=== PATIENT | female | born 2005 | race Caucasian/White ===

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

== ENCOUNTER 2025-01-17 21:23 | Emergency (ER) | payer OTHER, SELFPAY ==
[2025-01-17 21:24] VITALS: BP 138/78; PULSE 86; RESP 18; TEMP 36.7; O2SAT 100; BMI 29.2
--- NOTE | 2025-01-17 21:34 | ED_ITS ---
Discharge Plan Disposition Patient Disposition: Home, Self-Care Condition: Good Prescriptions Prescriptions: No Action No Known Home Medications Referrals Follow up/Referrals: Provider,Referral, MD [Primary Care Provider, Medical] - See instructions Activity Restrictions/Add. Instructions Additional Instructions/Restrictions: You can take Tylenol and ibuprofen as needed. Return to the emergency department for any acute or worsening symptoms. Clinical Impressions Clinical Impression: Acute left ankle pain Print Language Print Language: Malay Discharge ED Provider: Mariam Duffy General Adult HPI General Chief complaint: Fall Stated complaint: twisted L ankle Time Seen by Provider: 01/17/25 21:28 Mode of Arrival: Ambulatory Source of Information: Patient and Parent(s) Description of Symptoms (Recalled from ER Triage Doc. by RN): noel presents to the ED from a fall for 8 sets of stairs. patient was on the stairs decorating for halloween when her ankle rolled, causing the fall. she has a noticeable abrasion to the left knee, but her main complaint is her left ankle. she stated she also has hardware in the ankle. History of Present Illness HPI narrative: Patient is a 19-year-old female with no significant past medical history except for previous hardware in the left foot who presents to the emergency department with left ankle pain after a fall. Patient states that she was wearing shoes when she rolled her ankle causing the left foot to go behind her. Patient s tates that she not hit her head did not lose consciousness. Patient was able to walk afterwards. Patient has no motor or sensory deficits. Patient does not take any blood thinners. Patient does not take any daily medications. Related Data Home Medications ?Medication ?Instructions ?Recorded ?Confirmed No Known Home Medications 08/09/2407/19 Allergies Allergy/AdvReac Type Severity Reaction Status Date / Time No Known Allergies Allergy Verified 08/09/24 10:37 [facility] Disclaimer: The information contained in this section may have been updated after the patient was seen, as this information can be updated by other users. 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: Student current occupational exposures/hazards: No Have you lived/traveled outside US in past 30 days?: No Contact w/someone who lives/traveled outside US past 30 days?: No Exposure to someone with infectious disease in past 14 days?: No Do you have a fever (greater than 100.4 F or 38 C)?: No Have you tested positive for COVID-19?: No Exposed to someone with COVID-19 in past 14 days?: No Do you have a sore throat?: No Do you have a cough?: No Do you have any weakness?: No Do you have any diarrhea?: No Are you experiencing any unusual bleeding?: No Do you have any muscle aches/pain?: No Do you have any abdominal pain?: No Are you experiencing loss of taste or smell?: No Other Medical History Have you received the Flu Vaccine for this season: No Have you received the Pneumonia Vaccine: No ROS Obtained: Yes All systems reviewed & no additional complaints except as documented and Yes Systems reviewed as appropriate & no additional complaints except as documented Physical Exam General General appearance: alert and in no apparent distress Head Head exam: atraumatic, normocephalic and normal inspection Eye Eye exam: Present normal appearance, PERRL and EOMI; Absent scleral icterus ENT ENT exam: Present normal exam and normal external ear exam Neck Neck exam: Present normal inspection and full ROM Chest Chest inspection: Present normal inspection and symmetric chest wall rise Respiratory Respiratory exam: Present normal lung sounds bilaterally; Absent respiratory distress or wheezes Cardiovascular Cardiovascular exam: Present regular rate, normal rhythm, normal heart sounds and other (2+ DP pulse in the L foot) Abdominal Exam Abdominal exam: Present soft and distention; Absent tenderness, guarding or rebound Extremities Exam Extremities exam: Present normal inspection, full ROM and tenderness (L foot with tenderness at the medial and lateral malleolus, no swelling or bruising) Back Exam Back exam: Present normal inspection and full ROM Neurological Exam Neurological exam: Present alert, oriented X3 and other (NVI in the left foot) Psychiatric Psychiatric exam: Present normal affect and normal mood Skin Skin exam: Present warm and dry Medical Decision Making Medical Records Medical records reviewed: Yes I reviewed the patient's medical records. Screening: Per USPSTF and CDC recommendations, given the prevalence of disease in our region, it is our hospital?s policy to screen for HIV and viral Hepatitis for all patients aged 18 and over and those with ongoing risk factors. Juan Inquiry Pt receiving controlled substance: No Vital Signs: 01/17/25 21:24 01/17/25 21:37 01/17/25 21:43 Temperature 98.0 F 98.1 F Temperature Source Temporal Artery Scan Oral Pulse Rate 76 Pulse Rate [Right Radial] 86 Respiratory Rate 18 16 Blood Pressure 127/90 Blood Pressure [Right Arm] 138/78 Blood Pressure Mean [Right Arm] 98 Blood Pressure Source [Right Arm] Automatic Cuff Blood Pressure Position [Right Arm] Sitting 02 Sat by Pulse Oximetry 100 100 100 Oxygen Delivery Method Room Air Room Air Room Air Lab Data Lab results reviewed: Yes I reviewed the patient's lab results. Orders (Tests/Meds): ED MEDICATIONS Discontinued Medications Generic Name Dose Route Start Last Admin Trade Name Freq PRN Reason Stop Dose Admin Acetaminophen 1,000 mg 01/17/25 21:43 01/17/25 21:50 Acetaminophen 500mg Tab PO 01/17/25 21:44 1,000 mg ONCE ONE Administration Ibuprofen 800 mg 01/17/25 21:43 01/17/25 21:50 Ibuprofen 800 Mg Tablet PO 01/17/25 21:44 800 mg ONCE ONE Administration ORDERS Category Date Time Status Ankle XR - Left minimum 3 Views [XR ankle LT min 3V] Exams 01/17/25 21:36 Completed Stat Foot XR left minimum 3 views [XR foot LT min 3V] Stat Exams 01/17/25 21:36 Completed Tibia/fibula XR left 2 views [XR tibia fibula LT 2V] Exams 01/17/25 21:36 Completed Stat Medical Decision Narrative: Patient is a healthy 19-year-old female who presents to the emergency department with left ankle pain after a fall. On arrival, patient is hemodynamically stable with unremarkable vital signs Differential includes but not limited to: Fracture, dislocation, sprain, strain, amongst others. On exam, patient had some tenderness along the medial and lateral malleolus of the ankle no appreciable swelling or bruising. Patient had an appropriate DP 2+ pulse and was neurovascular intact. X-rays will be obtained patient will be given Tylenol Motrin with plan for reassessment. Patient's x-rays were reviewed and interpreted by myself and per radiology there was no acute fractures. Patient was recommended to take Tylenol Motrin as needed for comfort and patient was otherwise discharged home in stable condition return precautions were discussed Critical Care Critical Care Time Critical Care Time: No
--- NOTE | 2025-01-17 21:36 | XR_ITS ---
PROCEDURE INFORMATION: Exam: XR Left Tibia and Fibula Exam date and time: 01/17/2025 10:08 PM Age: 19 years old Clinical indication: Injury or trauma; Fall; Other: Tenderness; Additional info: Tenderness S/P fall TECHNIQUE: Imaging protocol: Radiologic exam of the left tibia and fibula. Views: 2 views. COMPARISON: CR XR TIBIA FIBULA LT 2V 01/17/2025 10:08 PM FINDINGS: Bones/joints: No acute fracture identified. Postop changes of the ankle incidentally noted. Soft tissues: Normal. IMPRESSION: No acute abnormality.
--- NOTE | 2025-01-17 21:36 | XR_ITS ---
PROCEDURE INFORMATION: Exam: XR Left Foot Exam date and time: 01/17/2025 10:08 PM Age: 19 years old Clinical indication: Injury or trauma; Fall; Other: Tenderness; Additional info: Tenderness S/P fall TECHNIQUE: Imaging protocol: Radiologic exam of the left foot. Views: 3 or more views. COMPARISON: CR XR FOOT LT MIN 3V 07/22/2020 3:34 PM FINDINGS: Bones/joints: Normal. No acute fracture identified. Soft tissues: Normal. IMPRESSION: No acute findings.
--- NOTE | 2025-01-17 21:36 | XR_ITS ---
PROCEDURE INFORMATION: Exam: XR Left Ankle Exam date and time: 01/17/2025 10:08 PM Age: 19 years old Clinical indication: Injury or trauma; Fall; Blunt trauma; Ankle; Left; Additional info: Tenderness S/P fall TECHNIQUE: Imaging protocol: Radiologic exam of the left ankle. Views: 3 or more views. COMPARISON: CR XR ANKLE LT MIN 3V 12/29/2021 11:14 AM FINDINGS: Bones/joints: No acute fracture identified. Postop changes of the ankle redemonstrated. Soft tissues: Normal. IMPRESSION: No acute abnormality.
[2025-01-17 21:37] VITALS: BP 127/90; PULSE 76; RESP 16; TEMP 36.7; O2SAT 100
--- OUTSIDE RECORDS SUMMARY | 2025-01-17 21:41 | XMS_ITS | Clinical Summary ---
Author Organization [facility] , [facility] Address [address] [place] [address] Phone Care Team Providers Care Health Concierge Name Role Phone Chaitanya Solorzano PA-C [phone] Reason for Visit and Chief Complaint The Chief Complaint is: low back pain Problems Includes: Problems addressed during this encounter and other active Problems Current Visit Onset Date Resolved Date Provider Lilibeth dennis Status Lower Back Pain 11/10/2023 Chaitanya Solorzano PA-C A ctive Last Documented On 4 8:50AM ; [facility], [facility] Plan of Treatment Patient was seen by myself Chaitanya Solorzano PA-C. Patient will follow up myself and Dr. Pineda after the lumbar spine MRI. - Last Documented On 12/21/2023 11:12AM ; [facility], [facility] Pending Tests Order Diagnosis Results Due Ordering P rovider Therapy - Physical Therapy Lumbar Low back pain, unspecified 11/10/23 Chaitanya Solorzano PA-C Last Documented On 4 3:09PM ; [facility], [facility] Radiology - MRI MRI Lumbar Spine Low back pain, unspecified 01/02/24 Chaitanya Solorzano PA-C Last Documented On 4 11:12AM ; [facility], [facility] Instructions to patient Intervention and counseling on cessation of tobacco use Last Documented On 4 1:30PM ; [facility], [facility] Assessments Includes: Assessments from this encounter Findings L5-S1 DDD/lumbar strain - Last Documented On 12/21/2023 11:12AM ; [facility], [facility] Instructions Includes: Instructions from this encounter Instructions to patient Intervention and counseling on cessation of tobacco use Last Documented On 4 1:30PM ; [facility], [facility] Medical Equipment - Implanted Devices Includes: Current Devices No Medical Equipment Recorded Medications Includes: Medications discussed during this encounter and other current Medications Current Medications (continue as prescribed) Lidocaine 5% External Patch 12/10/2023 Provider: Diagnosis: Last Documented On 4 1:29PM By Brook Rae ; [facility], [facility] Ibuprofen 600 MG Oral Tablet 11/22/2023 Provider: Diagnosis: Last Documented On 4 1:29PM By Brook Rae ; [facility], [facility] Methocarbamol 500 MG Oral Tablet 11/22/2023 Provider : Diagnosis: Last Documented On 4 1:29PM By Brook Rae ; [facility], [facility] Cyclobenzaprine HCl 10 MG Oral Tablet 11/07/2023 Pro vider: Diagnosis: Last Documented On 4 8:50AM By Brook Rae ; [facility], [facility] Naproxen 500 MG Oral Tablet 10/16/2023 Provider: Diagnosis: Last Documented On 4 8:50AM By Brook Rae ; [facility], [facility] Acetaminophen 325 MG Oral Tablet 09/04/2023 Provider : Diagnosis: Last Documented On 4 8:50AM By Brook Rae ; [facility], [facility] Past Medications on file Meloxicam 7.5 MG Oral Tablet 02/29/2024 - 04/29/2024 P rovider: Cedrick Pineda MD Diagnosis: Take one tablet by mouth twice a day Last Documented On 4 11:51AM By Papo Garcia ; [facility], [facility] Methocarbamol 750 MG Oral Tablet 02/29/2024 - 04/29/19 Provider: Cedrick Pineda MD Diagnosis: Take 1 tablet every 8 hrs prn pain Last Documented On 4 11:51AM By Papo Garcia ; [facility], [facility] Naprosyn 500 MG Oral Tablet 11/10/2023 - 12/10/2023 Pr ovider: Chaitanya Solorzano PA-C Diagnosis: Take 1 tablet by mouth twice a day Last Documented On 4 9:34AM By Brook Rae ; [facility], [facility] Medications Administered Includes: Administered Medications from this encounter No Administered Medications Recorded Vital Signs Includes: Vital Signs from this encounter Vital Name 12/19/2023 01:29P Height (in) 63 Weight (lb) 150 Body Mass Index 26.6 BMI Percentile (percentile) 87.7 Body Surface Area 1.7 Pain Level 6 Note: lc Last Documented: On 12/19/2023 1:30PM ; [facility] Results Includes: Results [...] from 1-10: 6 - Yes, previous treatment. [facility] - - Review of medications [...] 12/19/2023 Last Documented On 4 11:12AM ; [facility] Caffeine use 11/10/2023 Last Documented On 4 1:25PM ; [facility] Exercising regularly 11/10/2023 Last Documented On 4 1:25PM ; [facility] No recent change in diet 11/10/2023 Last Documented On 4 1:25PM ; [facility] Not using alcohol 11/10/2023 Last Documented On 4 1:25PM ; [facility] Not using drugs 11/10/2023 Last Documented On 4 1:25PM ; [facility] Smoking Status Unknown Procedures and Surgical History Surgical History Last Updated Past Surgical History: tonsilectomy 10/19 Last Documented On 4 1:25PM ; [facility] Medical History Includes: Medical History addressed during this encounter No Medical History Recorded Family History Includes: Family History addressed during this encounter Description Last Updated No significant family history 11/10/2023 Last Documented On 4 1:25PM ; [facility] Review of Systems Includes: Review [...] Time Diagnosis Follow Up [facility]:24[facility] 1:40[facility] Insurance Includes: Active Insurance Policies Plan Name Member ID Group # Subscriber Relationship Effect louis Dates 1 - [employer]etna [facility] [id number] [place] Self Clinical Notes Includes: Clinical Notes from this encounter * Progress note Date Encounter Last Documented by 12/19/2023 Follow Up Last documented on 12/21/2023; 11:12 AM, Chaitanya Peacock; [facility] Active Problems & Conditions - Lower [...] from 1-10: 6 - Yes, previous treatment. [facility] - - Review of medications [...]
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
--- OUTSIDE RECORDS SUMMARY | 2025-01-17 21:41 | XMS_ITS | Clinical Summary ---
Author Organization [facility] , [facility] Address [address] [place] [address] Phone Care Team Providers Care Cops Name Role Phone Chaitanya Solorzano PA-C Unavailable [phone] Reason for Visit and Chief Complaint The Chief Complaint is: low back pain Problems Includes: Problems addressed during this encounter and other active Problems Current Visit Onset Date Resolved Date Provider Lilibeth dennis Status Lower Back Pain 11/10/2023 Chaitanya Ricci ctive Last Documented On 4 8:50AM ; [facility] Plan of Treatment Pending Tests Order Diagnosis Results Due Ordering P rovider Therapy - Physical Therapy Lumbar Low back pain, unspecified 02/29/24 Cedrick Pineda MD Last Documented On 5 11:08AM ; [facility], [facility] Instructions to patient Intervention and counseling on cessation of tobacco use Last Documented On 4 11:15AM ; [facility] Assessments Includes: Assessments from this encounter No Assessments Recorded Instructions Includes: Instructions from this encounter Instructions to patient Intervention and counseling on cessation of tobacco use Last Documented On 4 11:15AM ; [facility] Medical Equipment - Implanted Devices Includes: Current Devices No Medical Equipment Recorded Medications Includes: Medications discussed during this encounter and other current Medications New / Renewed during this visit Cedrick Pineda MD on 02/29/2024 Meloxicam 7.5 MG Oral Tablet Provider: Cedrick Pineda MD 30 day supply: 60 tablet, 1 refills Diagnosis: Take one tablet by mouth twice a day [facility] [phone], [address] - Last Documented On 4 11:51AM By Papo Garcia ; [facility] Methocarbamol 750 MG Oral Tablet Provider: Cedrick Pineda MD 30 day supply: 60 tablet, 1 refills Diagnosis: Take 1 tablet every 8 hrs prn pain Pharmacy: [facility] [phone] , [place], [address] - Last Documented On 4 11:51AM By Papo Garcia ; [facility] Current Medications (continue as prescribed) Lidocaine 5% External Patch 12/10/2023 Provider: Diagnosis: Last Documented On 4 1:29PM By Brook Rae ; [facility] Ibuprofen 600 MG Oral Tablet 11/22/2023 Provider: Diagnosis: Last Documented On 4 1:29PM By Brook Rae ; [facility] Methocarbamol 500 MG Oral Tablet 11/22/2023 Provider : Diagnosis: Last Documented On 4 1:29PM By Brook Rae ; [facility] Cyclobenzaprine HCl 10 MG Oral Tablet 11/07/2023 Pro vider: Diagnosis: Last Documented On 4 8:50AM By Brook Rae ; [facility] Naproxen 500 MG Oral Tablet 10/16/2023 Provider: Diagnosis: Last Documented On 4 8:50AM By Brook Rae ; [facility] Acetaminophen 325 MG Oral Tablet 09/04/2023 Provider : Diagnosis: Last Documented On 4 8:50AM By Brook Rae ; [facility] Past Medications on file Naprosyn 500 MG Oral Tablet 11/10/2023 - 12/10/2023 Pr ovider: Chaitanya Solorzano PA-C Diagnosis: Take 1 tablet by mouth twice a day Last Documented On 4 9:34AM By Brook Rae ; [facility] Medications Administered Includes: Administered Medications from this encounter No Administered Medications Recorded Vital Signs Includes: Vital Signs from this encounter Vital Name 02/29/2024 11:20A Height (in) 64 Weight (lb) 150 Body Mass Index 25.7 BMI Percentile (percentile) 84.2 Body Surface Area 1.7 Pain Level 4 Last Documented: On 02/29/2024 11:20A M ; [facility] Results Includes: Results discussed during this encounter [...] accident - - Review of medications documented Social History Description Last Updated Yes, current smoker. 12/19/2023 Last Documented On 4 11:15AM ; [facility] Caffeine use 11/10/2023 Last Documented On 4 11:15AM ; [facility] Exercising regularly 11/10/2023 Last Documented On 4 11:15AM ; [facility] No recent change in diet 11/10/2023 Last Documented On 4 11:15AM ; [facility] Not using alcohol 11/10/2023 Last Documented On 4 11:15AM ; [facility] Not using drugs 11/10/2023 Last Documented On 4 11:15AM ; [facility] Smoking Status Unknown Procedures and Surgical History Surgical History Last Updated Past Surgical History: tonsilectomy 10/19 Last Documented On 4 11:15AM ; [facility], [facility] Medical History Includes: Medical History addressed during this encounter No Medical History Recorded Family History Includes: Family History addressed during this encounter Description Last Updated No significant family history 11/10/2023 Last Documented On 4 11:15AM ; [facility] Review of Systems Includes: Review of Systems [...] Time Diagnosis Follow Up Cedrick Pineda MD [facility] 4 11:14AM 11:35AM Insurance Includes: Active Insurance Policies Plan Name Member ID Group # Subscriber Relationship Effect louis Dates 1 - [facility] [id number] [place] Self Clinical Notes Includes: Clinical Notes from this encounter * Progress note Date Encounter Last Documented by 02/29/2024 Follow Up Last documented on 04/03/2024; 11:08 AM, Cedrick Pineda MD; [facility] Active Problems & Conditions - Lower Back [...]
--- OUTSIDE RECORDS SUMMARY | 2025-01-17 21:42 | XMS_ITS ---
Care Plan - [facility], [facility] Created on: January 17, 2025 [place] : 2005 Sex: Female Author Organization [facility] Address [address] [place] [address] Phone Care Team Providers Care Appointment Clerk Name Role Phone Chaitanya Solorzano PA-C Unavailable [phone]
--- OUTSIDE RECORDS SUMMARY | 2025-01-17 21:42 | XMS_ITS | Clinical Summary ---
Author Organization [facility] , [facility] Address [address] [place] [address] Phone Care Team Providers Care Senior Investigator Name Role Phone Chaitanya Solorzano PA-C [phone] Reason for Visit and Chief Complaint The Chief Complaint is: low back pain Problems Includes: Problems addressed during this encounter and other active Problems Current Visit Onset Date Resolved Date Provider Lilibeth dennis Status Lower Back Pain 11/10/2023 Chaitanya Solorzano PA-C A ctive Last Documented On 4 8:50AM ; [facility] Plan of Treatment Patient was seen by myself Chaitanya Solorzano PA-C. Patient will follow up 6 weeks start with physical therapy and anti-inflammatories such as naproxen if that does not help then we will get other imaging - Last Documented On 11/14/2023 3:09PM ; [facility] Pending Tests Order Diagnosis Results Due Ordering P rovider Therapy - Physical Therapy Lumbar Low back pain, unspecified 11/10/23 Chaitanya Solorzano PA-C Last Documented On 4 3:09PM ; [facility] Radiology - MRI MRI Lumbar Spine Low back pain, unspecified 01/02/24 Chaitanya Solorzano PA-C Last Documented On 4 11:12AM ; [facility] Assessments Includes: Assessments from this encounter Findings L5-S1 DDD/lumbar strain - Last Documented On 11/14/2023 3:09PM ; [facility] Medical Equipment - Implanted Devices Includes: Current Devices No Medical Equipment Recorded Medications Includes: Medications discussed during this encounter and other current Medications New / Renewed during this visit Chaitanya Solorzano PA-C on 11/10/2023 Naprosyn 500 MG Oral Tablet Provider: Chaitanya Solorzano PA-C 30 day supply: 60 tablet, 0 refills Diagnosis: Take 1 tablet by mouth twice a day Pharmacy: [facility] [phone] [place], [address] - Last Documented On 4 9:34AM By Brook Rae ; [facility], [facility] Current Medications (continue as prescribed) Lidocaine 5% External Patch 12/10/2023 Provider: Diagnosis: Last Documented On 4 1:29PM By Brook Rae ; [facility] Ibuprofen 600 MG Oral Tablet 11/22/2023 Provider: Diagnosis: Last Documented On 4 1:29PM By Brook Rae ; [facility] Methocarbamol 500 MG Oral Tablet 11/22/2023 Provider : Diagnosis: Last Documented On 4 1:29PM By Brook Rea ; [facility] Cyclobenzaprine HCl 10 MG Oral Tablet 11/07/2023 Pro vider: Diagnosis: Last Documented On 4 8:50AM By Brook Rae ; [facility] Naproxen 500 MG Oral Tablet 10/16/2023 Provider: Diagnosis: Last Documented On 4 8:50AM By Brook Rae ; [facility] Acetaminophen 325 MG Oral Tablet 09/04/2023 Provider : Diagnosis: Last Documented On 4 8:50AM By Brook Rae ; [facility] Past Medications on file Meloxicam 7.5 MG Oral Tablet 02/29/2024 - 04/29/2024 P adrianneder: Cedrick Pineda MD Diagnosis: Take one tablet by mouth twice a day Last Documented On 4 11:51AM By Papo Garcia ; [facility] Methocarbamol 750 MG Oral Tablet 02/29/2024 - 04/29/19 Provider: Cedrick Pineda MD Diagnosis: Take 1 tablet every 8 hrs prn pain Last Documented On 4 11:51AM By Papo Garcia ; [facility], [facility] Medications Administered Includes: Administered Medications from [...] from 1-10: 6 - Yes, previous treatment. [facility] - - Review of medications documented [...] 11/10/2023 Last Documented On 4 3:09PM ; [facility] Exercising regularly 11/10/2023 Last Documented On 4 3:09PM ; [facility] No recent change in diet 11/10/2023 Last Documented On 4 3:09PM ; [facility] Not a current smoker. 11/10/2023 Last Documented On 4 3:09PM ; [facility] Not using alcohol 11/10/2023 Last Documented On 4 3:09PM ; [facility] Not using drugs 11/10/2023 Last Documented On 4 3:09PM ; [facility] Smoking Status Unknown Procedures and Surgical History Surgical History Last Updated Past Surgical History: tonsilectomy 10/19 Last Documented On 4 3:09PM ; [facility] Medical History Includes: Medical History addressed during this encounter No Medical History Recorded Family History Includes: Family History addressed during this encounter Description Last Updated No significant family history 11/10/2023 Last Documented On 4 3:09PM ; [facility] Review of Systems Includes: Review [...] Time Diagnosis Physician Specified [facility]ait[facility] 24 8:54AM 9:25AM Insurance Includes: Active Insurance Policies Plan Name Member ID Group # Subscriber Relationship Effect louis Dates 1 - [employer] [facility] [id number] [place] Self Clinical Notes Includes: Clinical Notes from this encounter * Progress note Date Encounter Last Documented by 11/10/2023 Physician Specified Last hailey escobar on 11/14/2023; 3:09 PM, Chaitanya Solorzano PA-C; [facility], [facility] Active Problems & Conditions - Lower [...] from 1-10: 6 - Yes, previous treatment. [facility] - - Review of medications documented [...]
--- OUTSIDE RECORDS SUMMARY | 2025-01-17 21:42 | XMS_ITS | Clinical Summary ---
Author Organization [facility] , [facility] Address [address] [address] Phone Care Team Providers Care Upset Operator Name Role Phone Chaitanya Solorzano PA-C Unavailable [phone] Reason for Visit and Chief Complaint The Chief Complaint is: low back pain Problems Includes: Problems addressed during this encounter and other active Problems Current Visit Onset Date Resolved Date Provider Lilibeth dennis Status Lower Back Pain 11/10/2023 Chaitanya Ricci ctive Last Documented On 4 8:50AM ; [facility], [facility] Plan of Treatment Pending Tests Order Diagnosis Results Due Ordering P rovider Therapy - Physical Therapy Lumbar 04/18/24 Cedrick Pineda MD Last Documented On 5 10:37AM ; [facility], [facility] Instructions to patient Intervention and counseling on cessation of tobacco use Last Documented On 5 10:37AM ; [facility], [facility] Assessments Includes: Assessments from this encounter No Assessments Recorded Instructions Includes: Instructions from this encounter Instructions to patient Intervention and counseling on cessation of tobacco use Last Documented On 5 10:37AM ; [facility], [facility] Medical Equipment - Implanted Devices Includes: Current Devices No Medical Equipment Recorded Medications Includes: Medications discussed during this encounter and other current Medications Current Medications (continue as prescribed) Lidocaine 5% External Patch 12/10/2023 Provider: Diagnosis: Last Documented On 4 1:29PM By Brook [facility], [facility] Ibuprofen 600 MG Oral Tablet 11/22/2023 Provider: Diagnosis: Last Documented On 4 1:29PM By Brook Rae ; [facility] Methocarbamol 500 MG Oral Tablet 11/22/2023 Provider : Diagnosis: Last Documented On 4 1:29PM By Brook Rae ; [facility], [facility] Cyclobenzaprine HCl 10 MG Oral Tablet 11/07/2023 Pro vider: Diagnosis: Last Documented On 4 8:50AM By Brook Rae ; [facility], [facility] Naproxen 500 MG Oral Tablet 10/16/2023 Provider: Diagnosis: Last Documented On 4 8:50AM By Brook Rae ; [facility], [facility] Acetaminophen 325 MG Oral Tablet 09/04/2023 Provider : Diagnosis: Last Documented On 4 8:50AM By Brook Rae ; [facility], [facility] Past Medications on file Meloxicam 7.5 MG Oral Tablet 02/29/2024 - 04/29/2024 P rovider: Cedrick Pineda MD Diagnosis: Take one tablet by mouth twice a day Last Documented On 4 11:51AM By Papo Garcia ; [facility], [facility] Methocarbamol 750 MG Oral Tablet 02/29/2024 - 04/29/19 Provider: Cedrick Pineda MD Diagnosis: Take 1 tablet every 8 hrs prn pain Last Documented On 4 11:51AM By Papo Garcia ; [facility], [facility] Naprosyn 500 MG Oral Tablet 11/10/2023 - 12/10/2023 Pr ovider: Chaitanya Solorzano PA-C Diagnosis: Take 1 tablet by mouth twice a day Last Documented On 4 9:34AM By Brook Rae ; [facility], [facility] Medications Administered Includes: Administered Medications from this encounter No Administered Medications Recorded Vital Signs Includes: Vital Signs from this encounter Vital Name 04/18/2024 10:44A 04/18/2024 10: 37A Height (in) 64 64 Weight (lb) 155 150 Body Mass Index 26.6 25.7 BMI Percentile (percentile) 87.2 84 Body Surface Area 1.8 1.7 Pain Level 7 Last Documented: On 04/18/2024 10:44A M ; [facility], [facility] On 04/18/2024 10:37AM ; [facility], [facility] Results Includes: Results discussed during this [...] Yes, current smoker. 12/19/2023 Last Documented On 5 10:36AM ; [facility] Caffeine use 11/10/2023 Last Documented On 5 10:36AM ; [facility], [facility] Exercising regularly 11/10/2023 Last Documented On 5 10:36AM ; [facility] No recent change in diet 11/10/2023 Last Documented On 5 10:36AM ; [facility] Not using alcohol 11/10/2023 Last Documented On 5 10:36AM ; [facility] Not using drugs 11/10/2023 Last Documented On 5 10:36AM ; [facility] Smoking Status Unknown Procedures and Surgical History Surgical History Last Updated Past Surgical History: tonsilectomy 10/19 Last Documented On 5 10:36AM ; [facility] Medical History Includes: Medical History addressed during this encounter No Medical History Recorded Family History Includes: Family History addressed during this encounter Description Last Updated No significant family history 11/10/2023 Last Documented On 5 10:36AM ; [facility] Review of Systems Includes: Review of [...] Time Diagnosis Follow Up Cedrick Pineda MD [facility] 5 10:26AM 10:38AM Insurance Includes: Active Insurance Policies Plan Name Member ID Group # Subscriber Relationship Effect louis Dates 1 - [employer] [facility] [id number] [place] Self Clinical Notes Includes: Clinical Notes from this encounter No Clinical Notes Recorded
[2025-01-17 21:43] VITALS: O2SAT 100
[2025-01-17] MEDS: IBUPROFEN 800 MG TABLET PO (21:50)
[2025-01-17] MEDS: ACETAMINOPHEN 500MG TAB 1000 MG PO (21:50)
[2025-01-17 22:37] VITALS: BP 127/90; PULSE 76; RESP 16; TEMP 36.7; O2SAT 100
== END 2025-01-17 22:49 | disposition home or self-care (01) ==
PROVIDERS: Emergency Provider Student in an Organized Health Care Education/Training Program
DX: M25.572 Pain in left ankle and joints of left foot (principal); X50.1XXA Overexertion from prolonged static or awkward postures, initial encounter
CPT/HCPCS: 73590; 73610; 73630; 99284

== ENCOUNTER 2025-02-28 12:20 | Outpatient (CLI) | payer OTHER, SELFPAY | END 2025-02-28 23:59 | disposition home or self-care (01) | LOC: LAB 12:22 | PROVIDERS: PCP Internal Medicine; Visit Provider Obstetrics & Gynecology | DX: Z34.90 Encounter for supervision of normal pregnancy, unspecified, unspecified trimester (principal); Z3A.00 Weeks of gestation of pregnancy not specified | CPT/HCPCS: 36415; 84144; 84702 ==

== ENCOUNTER 2025-03-18 10:50 | Emergency (ER) | payer OTHER, SELFPAY ==
[2025-03-18] VITALS (7 sets, daily range): BP systolic 90–114; BP diastolic 54–76; PULSE 93–146; RESP 16–18; TEMP 36.6–37; O2SAT 97–100; BMI 29.2
--- NOTE | 2025-03-18 11:04 | XR_ITS ---
FINAL REPORT TECHNIQUE: Single view chest CLINICAL HISTORY: short of breath, body aches, vomiting & diarrhea since last night, vapes x 1 year COMPARISON: 05/26/2019 FINDINGS: A single view of the chest was obtained. The heart and mediastinum are within normal limits. The lungs are clear. There is no pneumothorax. IMPRESSION: No acute cardiopulmonary process. Reviewed, Interpreted and Dictated by Sujey Alaniz MD Transcribed by Thelma Rowley Authenticated and . [facility]
--- NOTE | 2025-03-18 11:08 | HMH.EDGENADL ---
Discharge Plan Disposition Chief Complaint: Nausea/Vomiting/Diarrhea Prescriptions Prescriptions: No Action No Known Home Medications Referrals Follow up/Referrals: Brandon Rivero MD [Primary Care Provider, Medical] - See instructions Instructions Patient Instructions: DI for Diarrhea and Traveler's Diarrhea in Adults, DI for Diarrhea and Traveler's Diarrhea in Children, DI for Nausea in Adults, DI for Nausea in Children Print Language Print Language: Tamazight Discharge ED Provider: Rei He General Adult HPI <Asia Burns (ED), SUPPORT SERVICES COORDINATOR - Last Filed: 03/18/25 13:04> General Chief complaint: Nausea/Vomiting/Diarrhea Stated complaint: vomiting, lower back pain, headache Time Seen by Provider: 03/18/25 10:55 Mode of Arrival: Ambulatory Source of Information: Patient Description of Symptoms (Recalled from ER Triage Doc. by RN): Patient reports nausea, vomiting, diarrhea that started last night. History of Present Illness HPI narrative: 19-year-old female presents to the ED today for complaint of nausea, vomiting and diarrhea that started about 2100 last night. Says that she has been vomiting about every 10 minutes since. She is not sure she has had a fever or not. Patient says that her diarrhea is straight water. No upper respiratory symptoms. Her last menstrual period was 2 weeks ago. She has no medical history. Related Data Home Medications ?Medication ?Instructions ?Recorded ?Confirmed No Known Home Medications 08/09/24 03/18/25 Allergies Allergy/AdvReac Type Severity Reaction Status Date / Time No Known Allergies Allergy Verified 03/18/25 11:10 PFSH <Asia Burns (ED), SUPPORT SERVICES COORDINATOR - Last Filed: 03/18/25 13:04> [facility] Disclaimer: The information contained in this section may have been updated after the patient was seen, as this information can be updated by other users. 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 current occupational exposures/hazards: No Have you lived/traveled outside US in past 30 days?: No Contact w/someone who lives/traveled outside US past 30 days?: No Exposure to someone with infectious disease in past 14 days?: No Do you have a fever (greater than 100.4 F or 38 C)?: No Have you tested positive for COVID-19?: No Exposed to someone with COVID-19 in past 14 days?: No Do you have a sore throat?: No Do you have a cough?: No Do you have any weakness?: No Do you have any diarrhea?: No Are you experiencing any unusual bleeding?: No Do you have any muscle aches/pain?: No Do you have any abdominal pain?: No Are you experiencing loss of taste or smell?: No Other Medical History Have you received the Flu Vaccine for this season: No Have you received the Pneumonia Vaccine: No <Asia Burns (ED), SUPPORT SERVICES COORDINATOR - Last Filed: 03/18/25 13:04> ROS Obtained: Yes Systems reviewed as appropriate & no additional complaints except as documented Constitutional Constitutional: Reports as per HPI Physical Exam <Asia Burns (ED), SUPPORT SERVICES COORDINATOR - Last Filed: 03/18/25 13:04> General General appearance: alert and other Head Head exam: normocephalic Eye Eye exam: Present PERRL and EOMI ENT ENT exam: Present normal oropharynx and mucous membranes dry Neck Neck exam: Present full ROM and trachea midline Respiratory Respiratory exam: Present normal lung sounds bilaterally Cardiovascular Cardiovascular exam: Present normal rhythm, tachycardia, normal heart sounds, +S1 and +S2 Abdominal Exam Abdominal exam: Present soft and normal bowel sounds Extremities Exam Extremities exam: Present full ROM and normal capillary refill Neurological Exam Neurological exam: Present alert and oriented X3 Skin Skin exam: Present warm and dry Medical Decision Making <Asia Burns (ED), SUPPORT SERVICES COORDINATOR - Last Filed: 03/18/25 13:04> Medical Records Screening: Per USPSTF and CDC recommendations, given the prevalence of disease in our region, it is our hospital?s policy to screen for HIV and viral Hepatitis for all patients aged 18 and over and those with ongoing risk factors. Juan Inquiry Pt receiving controlled substance: No Juan was queried for this patient: No Vital Signs: 03/18/25 11:00 03/18/25 11:03 03/18/25 11:31 Temperature 98.6 F Temperature Source Oral Pulse Rate 146 H 107 H Pulse Rate [Right Brachial] 130 H Respiratory Rate 18 Blood Pressure 109/76 L 94/73 L Blood Pressure [Right Arm] 109/76 L Blood Pressure Mean [Right Arm] 87 Blood Pressure Source [Right Arm] Automatic Cuff Blood Pressure Position [Right Arm] Sitting 02 Sat by Pulse Oximetry 97 98 100 Oxygen Delivery Method Room Air 03/18/25 11:45 03/18/25 12:00 03/18/25 12:45 Temperature Temperature Source Pulse Rate 102 H 100 H 95 H Pulse Rate [Right Brachial] Respiratory Rate Blood Pressure 114/76 90/62 L 101/54 L Blood Pressure [Right Arm] Blood Pressure Mean [Right Arm] Blood Pressure Source [Right Arm] Blood Pressure Position [Right Arm] 02 Sat by Pulse Oximetry 100 100 100 Oxygen Delivery Method Lab Data Lab Results 03/18/25 10:53: Urine Color Yellow, Urine Appearance Clear, Urine pH 6.0, Ur Specific [place] >= 1.030, Urine Protein Negative, Urine Glucose (UA) Negative, Urine Ketones Negative, Urine Blood Negative, Urine Nitrate Negative, Urine Bilirubin Negative, Urine Urobilinogen 0.2, Ur Leukocyte Esterase Negative, Urine RBC None, Urine WBC Occasional, Ur Squamous Epith Cells 3-5, Urine Bacteria Trace, Urine HCG, Qual Negative 03/18/25 11:09: WBC 13.6 H, RBC 4.77, Hgb 15.4, Hct 43.7, MCV 91.6, MCH 32.3 H, MCHC 35.2, RDW 11.3 L, Plt Count 467 H, MPV 10.0, Neut % (Auto) 92.7 H, Lymph % (Auto) 3.6 L, [place] % (Auto) 3.3, Eos % (Auto) 0.0 L, Baso % (Auto) 0.1, Neut # (Auto) 12.6 H, Lymph # (Auto) 0.5 L, [place] # (Auto) 0.5, Eos # (Auto) 0.0, Baso # (Auto) 0.0, Total Counted 100, Neutrophils % (Manual) 91 H, Lymphocytes % (Manual) 7 L, Monocytes % (Manual) 2, Platelet Estimate Slight increase, RBC Morphology Normal, Sodium 138, Potassium 4.3, Chloride 103, Carbon Dioxide 20 L, Anion Gap 19.3 H, BUN 20 H, Creatinine 0.90, Estimated Creat Clear 122, Estimated GFR 81, Est GFR ( Amer) 98, Glucose 147 H, Calcium 10.0, Magnesium 1.9, Total Bilirubin 1.2, AST 31, ALT 22, Alkaline Phosphatase 72, Troponin I < 0.01, Total Protein 8.2, Albumin 5.3 H, Globulin 2.9, Albumin/Globulin Ratio 1.8, Lipase 48, HCV Ab ABBY w/Rflx PCR Qn Negative, HIV Ag/Ab Combo Qual Negative 03/18/25 11:13: SARS-CoV-2 (PCR) Not detected, Influenza A Untype (PCR) Not detected, Influenza Type B (PCR) Not detected 03/18/25 11:09 03/18/25 11:09 Orders (Tests/Meds): ED MEDICATIONS Generic Name Dose Route Start Last Admin Trade Name Freq PRN Reason Stop Dose Admin Sodium Chloride 8 ml 03/18/25 11:04 Sodium Chloride 0.9% 10ml Vial IV 04/17/25 11:03 NEEDED PRN dilute pepcid Sodium Chloride 10 ml 03/18/25 12:33 03/18/25 12:33 Sodium Chloride 0.9% 10ml Syr (Rad Only) IV 04/17/25 12:32 10 ml NEEDED PRN Administration Maintain IV Site Discontinued Medications Generic Name Dose Route Start Last Admin Trade Name Freq PRN Reason Stop Dose Admin Acetaminophen 1,000 mg 03/18/25 12:02 03/18/25 12:12 Acetaminophen 1,000mg/100ml Vial IV 03/18/25 12:03 1,000 mg ONCE ONE Administration Famotidine 20 mg 03/18/25 11:04 03/18/25 11:18 Famotidine 20mg/2ml Vial IV 03/18/25 11:05 20 mg ONCE ONE Administration Sodium Chloride 1,000 mls @ 999 mls/hr 03/18/25 11:04 03/18/25 13:18 Sod Chlor 0.9% 1000ml Bag IV 03/18/25 12:04 Infused .Q1H1M ONE Infusion Sodium Chloride 1,000 mls @ 999 mls/hr 03/18/25 12:02 03/18/25 13:19 Sod Chlor 0.9% 1000ml Bag IV 03/18/25 13:02 Infused .Q1H1M ONE Infusion Iopamidol 75 ml 03/18/25 12:33 03/18/25 12:33 Iopamidol-370 (76%);100ml Bottle IV 03/18/25 12:34 75 ml ONCE ONE Administration Ketorolac Tromethamine 30 mg 03/18/25 12:02 03/18/25 12:12 Ketorolac 30mg/Ml Vial IV 03/18/25 12:03 30 mg ONCE ONE Administration Ondansetron HCl 4 mg 03/18/25 11:05 03/18/25 11:18 Ondansetron 4mg/2ml Vial IV 03/18/25 11:06 4 mg ONCE ONE Administration ORDERS Category Date Time Status CT abdomen pelvis w con Stat Cat Scan 03/18/25 12:04 Completed Chest XR -- portable [XR chest portable] Stat Exams 03/18/25 11:04 Completed CBC [Complete Blood Count Auto Diff] Stat Lab 03/18/25 11:09 Completed Comprehensive Metabolic Panel Stat Lab 03/18/25 11:09 Completed HIV Combo Routine Lab 03/18/25 11:09 Completed Hepatitis C Ab Qual. W/ RFX Routine Lab 03/18/25 11:09 Completed Lipase Stat Lab 03/18/25 11:09 Completed Magnesium Stat Lab 03/18/25 11:09 Completed Rapid PCR Covid and Flu A/B Stat Lab 03/18/25 11:13 Completed Trop I [Troponin I] Stat Lab 03/18/25 11:09 Completed Troponin I Q3H Lab 03/18/25 14:15 Ordered Troponin I Q3H Lab 03/18/25 17:15 Ordered Urinalysis and Microscopic Stat Lab 03/18/25 10:53 Completed Urine , HCG Qual. Stat Lab 03/18/25 10:53 Completed Medical Decision Narrative: patient is a 19-year-old female presenting to the emergency department for evaluation of nausea vomiting diarrhea since 2100 last night. Patient is heart rate is in the 130s and nontoxic-appearing upon arrival, afebrile. Differential diagnosis includes viral illness, , among others. Workup will be conducted with hematologic labs, specific imaging. Initial inventions include crystalloid bolus, analgesics. Patient henson for sepsis as her heart rate initially was 130s and her white count was 13. This is likely because she is dehydrated and been vomiting. She has been getting IV fluids. She got 2 L of fluid. Her heart rate has improved to 95. Initial workup reviewed by me hematologic labs are remarkable for White count was 13.6, H&H 15.4 and 43.7, potassium was 4.3 sodium and chloride were normal BUN was 20 creatinine was 0.9 AST and ALT were normal, troponin was less than 0.01 urine was negative COVID and flu were not detected. At 1203 I went to check on patient and she continues to have low back pain lower abdominal pain that is diffuse across her abdomen and headache. I ordered another bag of fluids, CT scan and Toradol and Tylenol for pain. I also discussed with Dr. He. <Rei He MD - Last Filed: 03/18/25 14:16> Vital Signs: 03/18/25 11:00 03/18/25 11:03 03/18/25 11:31 Temperature 98.6 F Temperature Source Oral Pulse Rate 146 H 107 H Pulse Rate [Right Brachial] 130 H Respiratory Rate 18 Blood Pressure 109/76 L 94/73 L Blood Pressure [Right Arm] 109/76 L Blood Pressure Mean [Right Arm] 87 Blood Pressure Source [Right Arm] Automatic Cuff Blood Pressure Position [Right Arm] Sitting 02 Sat by Pulse Oximetry 97 98 100 Oxygen Delivery Method Room Air 03/18/25 11:45 03/18/25 12:00 03/18/25 12:45 Temperature Temperature Source Pulse Rate 102 H 100 H 95 H Pulse Rate [Right Brachial] Respiratory Rate Blood Pressure 114/76 90/62 L 101/54 L Blood Pressure [Right Arm] Blood Pressure Mean [Right Arm] Blood Pressure Source [Right Arm] Blood Pressure Position [Right Arm] 02 Sat by Pulse Oximetry 100 100 100 Oxygen Delivery Method Lab Data Lab Results 03/18/25 10:53: Urine Color Yellow, Urine Appearance Clear, Urine pH 6.0, Ur Specific [place] >= 1.030, Urine Protein Negative, Urine Glucose (UA) Negative, Urine Ketones Negative, Urine Blood Negative, Urine Nitrate Negative, Urine Bilirubin Negative, Urine Urobilinogen 0.2, Ur Leukocyte Esterase Negative, Urine RBC None, Urine WBC Occasional, Ur Squamous Epith Cells 3-5, Urine Bacteria Trace, Urine HCG, Qual Negative 03/18/25 11:09: WBC 13.6 H, RBC 4.77, Hgb 15.4, Hct 43.7, MCV 91.6, MCH 32.3 H, MCHC 35.2, RDW 11.3 L, Plt Count 467 H, MPV 10.0, Neut % (Auto) 92.7 H, Lymph % (Auto) 3.6 L, [place] % (Auto) 3.3, Eos % (Auto) 0.0 L, Baso % (Auto) 0.1, Neut # (Auto) 12.6 H, Lymph # (Auto) 0.5 L, [place] # (Auto) 0.5, Eos # (Auto) 0.0, Baso # (Auto) 0.0, Total Counted 100, Neutrophils % (Manual) 91 H, Lymphocytes % (Manual) 7 L, Monocytes % (Manual) 2, Platelet Estimate Slight increase, RBC Morphology Normal, Sodium 138, Potassium 4.3, Chloride 103, Carbon Dioxide 20 L, Anion Gap 19.3 H, BUN 20 H, Creatinine 0.90, Estimated Creat Clear 122, Estimated GFR 81, Est GFR ( Amer) 98, Glucose 147 H, Calcium 10.0, Magnesium 1.9, Total Bilirubin 1.2, AST 31, ALT 22, Alkaline Phosphatase 72, Troponin I < 0.01, Total Protein 8.2, Albumin 5.3 H, Globulin 2.9, Albumin/Globulin Ratio 1.8, Lipase 48, HCV Ab ABBY w/Rflx PCR Qn Negative, HIV Ag/Ab Combo Qual Negative 03/18/25 11:13: SARS-CoV-2 (PCR) Not detected, Influenza A Untype (PCR) Not detected, Influenza Type B (PCR) Not detected Orders (Tests/Meds): ED MEDICATIONS Generic Name Dose Route Start Last Admin Trade Name Freq PRN Reason Stop Dose Admin Sodium Chloride 8 ml 03/18/25 11:04 Sodium Chloride 0.9% 10ml Vial IV 04/17/25 11:03 NEEDED PRN dilute pepcid Sodium Chloride 10 ml 03/18/25 12:33 03/18/25 12:33 Sodium Chloride 0.9% 10ml Syr (Rad Only) IV 04/17/25 12:32 10 ml NEEDED PRN Administration Maintain IV Site Discontinued Medications Generic Name Dose Route Start Last Admin Trade Name Joao PRN Reason Stop Dose Admin Acetaminophen 1,000 mg 03/18/25 12:02 03/18/25 12:12 Acetaminophen 1,000mg/100ml Vial IV 03/18/25 12:03 1,000 mg ONCE ONE Administration Famotidine 20 mg 03/18/25 11:04 03/18/25 11:18 Famotidine 20mg/2ml Vial IV 03/18/25 11:05 20 mg ONCE ONE Administration Sodium Chloride 1,000 mls @ 999 mls/hr 03/18/25 11:04 03/18/25 13:18 Sod Chlor 0.9% 1000ml Bag IV 03/18/25 12:04 Infused .Q1H1M ONE Infusion Sodium Chloride 1,000 mls @ 999 mls/hr 03/18/25 12:02 03/18/25 13:19 Sod Chlor 0.9% 1000ml Bag IV 03/18/25 13:02 Infused .Q1H1M ONE Infusion Iopamidol 75 ml 03/18/25 12:33 03/18/25 12:33 Iopamidol-370 (76%);100ml Bottle IV 03/18/25 12:34 75 ml ONCE ONE Administration Ketorolac Tromethamine 30 mg 03/18/25 12:02 03/18/25 12:12 Ketorolac 30mg/Ml Vial IV 03/18/25 12:03 30 mg ONCE ONE Administration Ondansetron HCl 4 mg 03/18/25 11:05 03/18/25 11:18 Ondansetron 4mg/2ml Vial IV 03/18/25 11:06 4 mg ONCE ONE Administration ORDERS Category Date Time Status CT abdomen pelvis w con Stat Cat Scan 03/18/25 12:04 Completed Chest XR -- portable [XR chest portable] Stat Exams 03/18/25 11:04 Completed CBC [Complete Blood Count Auto Diff] Stat Lab 03/18/25 11:09 Completed Comprehensive Metabolic Panel Stat Lab 03/18/25 11:09 Completed HIV Combo Routine Lab 03/18/25 11:09 Completed Hepatitis C Ab Qual. W/ RFX Routine Lab 03/18/25 11:09 Completed Lipase Stat Lab 03/18/25 11:09 Completed Magnesium Stat Lab 03/18/25 11:09 Completed Rapid PCR Covid and Flu A/B Stat Lab 03/18/25 11:13 Completed Trop I [Troponin I] Stat Lab 03/18/25 11:09 Completed Troponin I Q3H Lab 03/18/25 14:15 Ordered Troponin I Q3H Lab 03/18/25 17:15 Ordered Urinalysis and Microscopic Stat Lab 03/18/25 10:53 Completed Urine , HCG Qual. Stat Lab 03/18/25 10:53 Completed ECG Data Tracing #1: Independently interpreted by me rate is 98, rhythm is regular, axis is normal, no ST elevation in anatomical contiguous leads, QTc 386 Medical Decision Narrative: patient is a 19-year-old female presenting to the emergency department for evaluation of nausea vomiting diarrhea since 2100 last night. Patient is heart rate is in the 130s and nontoxic-appearing upon arrival, afebrile. Differential diagnosis includes viral illness, , among others. Workup will be conducted with hematologic labs, specific imaging. Initial inventions include crystalloid bolus, analgesics. Patient henson for sepsis as her heart rate initially was 130s and her white count was 13. This is likely because she is dehydrated and been vomiting. She has been getting IV fluids. She got 2 L of fluid. Her heart rate has improved to 95. Initial workup reviewed by me hematologic labs are remarkable for White count was 13.6, H&H 15.4 and 43.7, potassium was 4.3 sodium and chloride were normal BUN was 20 creatinine was 0.9 AST and ALT were normal, troponin was less than 0.01 urine was negative COVID and flu were not detected. At 1203 I went to check on patient and she continues to have low back pain lower abdominal pain that is diffuse across her abdomen and headache. I ordered another bag of fluids, CT scan and Toradol and Tylenol for pain. I also discussed with Dr. He. Rei He MD: I was consulted by the [facility], and we discussed the complexity of the problems being addressed. I approved the treatment and management plan for this patient's care in the emergency department, thus performing a substantive portion of the medical decision making. Critical Care <Asia Burns (ED), SUPPORT SERVICES COORDINATOR - Last Filed: 12/30/25 13:04> Critical Care Time Critical Care Time: No
--- OUTSIDE RECORDS SUMMARY | 2025-03-18 11:12 | XMS_ITS | Clinical Summary ---
Author Organization [facility] , [facility] Address [address] [place] [address] Phone Care Team Providers Care Draftsperson Name Role Phone Rashad NOLAN Chaitanya Unavailable [phone] Reason for Visit and Chief Complaint The Chief Complaint is: low back pain Problems Includes: Problems addressed during this encounter and other active Problems Current Visit Onset Date Date of Diagnosis Resolved Date Provider Condition Status Lower Back Pain 11/10/2023 11/10/2023 Chaitanya Solorzano PA-C Active Last Documented On 5 1:42AM ; [facility] Plan of Treatment Pending Tests Order Diagnosis Results Due Ordering P rovider Therapy - Physical Therapy Lumbar Low back pain, unspecified 02/29/24 Cedrick Pineda MD Last Documented On 5 11:08AM ; [facility] Instructions to patient Intervention and counseling on cessation of tobacco use Last Documented On 4 11:15AM ; [facility], [facility] Assessments Includes: Assessments from this encounter No Assessments Recorded Instructions Includes: Instructions from this encounter Instructions to patient Intervention and counseling on cessation of tobacco use Last Documented On 4 11:15AM ; [facility] Medical Equipment - Implanted Devices Includes: Current Devices No Medical Equipment Recorded Medications Includes: Medications discussed during this encounter and other current Medications New / Renewed during this visit Cedrick Pineda MD on 02/29/2024 Meloxicam 7.5 MG Oral Tablet Provider: Cedrick Pineda MD 30 day supply: 60 tablet, 1 refills Diagnosis: Take one tablet by mouth twice a day Pharmacy: [facility] [address], [address] - Last Documented On 4 11:51AM By Papo Garcia ; [facility] Methocarbamol 750 MG Oral Tablet Provider: Cedrick Pineda MD 30 day supply: 60 tablet, 1 refills Diagnosis: Take 1 tablet every 8 hrs prn pain Pharmacy: [facility] [id number] [address] [place], [id number] - Last Documented On 4 11:51AM By Papo Garcia ; [facility] Current Medications (continue as prescribed) Lidocaine 5% External Patch 12/10/2023 Provider: Diagnosis: Last Documented On 4 1:29PM By Brook Rae ; [facility] Ibuprofen 600 MG Oral Tablet 11/22/2023 Provider: Diagnosis: Last Documented On 4 1:29PM By Brook Rae ; [facility] Methocarbamol 500 MG Oral Tablet 11/22/2023 Provider : Diagnosis: Last Documented On 4 1:29PM By Brook Rae ; [facility] Cyclobenzaprine HCl 10 MG Oral Tablet 11/07/2023 Pro vider: Diagnosis: Last Documented On 4 8:50AM By Brook Rae ; [facility] Naproxen 500 MG Oral Tablet 10/16/2023 Provider: Diagnosis: Last Documented On 4 8:50AM By Brook Rae ; [facility] Acetaminophen 325 MG Oral Tablet 09/04/2023 Provider : Diagnosis: Last Documented On 4 8:50AM By Brook Rae ; [facility] Past Medications on file Naprosyn 500 MG Oral Tablet 11/10/2023 - 12/10/2023 Pr ovider: Chaitanya Solorzano PA-C Diagnosis: Take 1 tablet by mouth twice a day Last Documented On 4 9:34AM By Brook Rae ; [facility] Medications Administered Includes: Administered Medications from this encounter No Administered Medications Recorded Vital Signs Includes: Vital Signs from this encounter Vital Name 02/29/2024 11:20A Height (in) 64 Weight (lb) 150 Body Mass Index 25.7 BMI Percentile (percentile) 84.2 Body Surface Area 1.7 Pain Level 4 Last Documented: On 02/29/2024 11:20A M ; [facility] Results Includes: Results discussed during this [...] 12/19/2023 Last Documented On 4 11:15AM ; [facility], [facility] Caffeine use 11/10/2023 Last Documented On 4 11:15AM ; [facility], [facility] Exercising regularly 11/10/2023 Last Documented On 4 11:15AM ; [facility], [facility] No recent change in diet 11/10/2023 Last Documented On 4 11:15AM ; [facility] Not using alcohol 11/10/2023 Last Documented On 4 11:15AM ; [facility] Not using drugs 11/10/2023 Last Documented On 4 11:15AM ; [facility], [facility] Sex - Female 07/22/2024 Last Documented On 5 4:10PM ; [facility], [facility] Smoking Status Unknown Procedures and Surgical History Surgical History Last Updated Past Surgical History: tonsilectomy 10/19 Last Documented On 4 11:15AM ; [facility], [facility] Medical History Includes: Medical History addressed during this encounter No Medical History Recorded Family History Includes: Family History addressed during this encounter Description Last Updated No significant family history 11/10/2023 Last Documented On 4 11:15AM ; [facility], [facility] Review of Systems Includes: Review of [...] Status from this encounter Description No anxiety Last Documented On 11:15AM ; [facility] Physical Exam Includes: Physical Exam from this encounter Allergies Includes: Active Allergies No Known Allergies Care Draftsperson Name (Identifier) Role/Relation Location/Telecom Last Documented By Chaitanya Solorzano PA-C ([id number]) Assigned practitioner (occupation) tel: Last Documented On 07/22/2024 4:10PM ; [facility] Encounters Encounter Provider Location (Healthcare Service Location) Date Check-In Time Check-Out Time Diagnosis Encounter Disposition Follow Up Cedrick Pineda MD [facility] 2023 11:14AM 11:35AM Payer Includes: Active Insurance Policies Plan Name (Payer ID) Coverage Type Member ID Group # Subscriber (ID) Relationship Effective Dates 1 - [employer] [facility] ([id number]) [id number] Whitney Laek Self Last Documented On 8:39AM ; [facility] Clinical Notes Includes: Clinical Notes from this encounter * Progress note Date Encounter Last Documented by 02/29/2024 Follow Up Last documented on 04/03/2024; 11:08 AM, Cedrick Pineda MD; [facility] Active Problems & Conditions - Lower Back [...]
--- OUTSIDE RECORDS SUMMARY | 2025-03-18 11:12 | XMS_ITS ---
Care Plan - [facility] Created on: March 18, 2025 [place] : 2005 Sex: Female Author Organization [facility] , [facility] Address [address] [place] [address] Phone Care Team Providers Care Verifying Specialist Name Role Phone Chaitanya Solorzano PA-C Unavailable [phone]
--- OUTSIDE RECORDS SUMMARY | 2025-03-18 11:12 | XMS_ITS | Clinical Summary ---
Author Organization [facility] , [facility] Address [address] [place] [address] Phone Care Team Providers Care Sheet Tester Name Role Phone Rashad NOLAN Chaitanya Unavailable [phone] Reason for Visit and Chief Complaint The Chief Complaint is: low back pain Problems Includes: Problems addressed during this encounter and other active Problems Current Visit Onset Date Date of Diagnosis Resolved Date Provider Condition Status Lower Back Pain 11/10/2023 11/10/2023 Chaitanya Solorzano PA-C Active Last Documented On 5 1:42AM ; [facility] Plan of Treatment Patient was seen by myself Chaitanya Solorzano PA-C. Patient will follow up myself and Dr. Pineda after the lumbar spine MRI. - Last Documented On 12/21/2023 11:12AM ; [facility] Pending Tests Order Diagnosis Results Due Ordering P rovider Therapy - Physical Therapy Lumbar Low back pain, unspecified 11/10/23 Chaitanya Solorzano PA-C Last Documented On 4 3:09PM ; [facility] Radiology - MRI MRI Lumbar Spine Low back pain, unspecified 01/02/24 Chaitanya Solorzano PA-C Last Documented On 4 11:12AM ; [facility] Instructions to patient Intervention and counseling on cessation of tobacco use Last Documented On 4 1:30PM ; [facility], [facility] Assessments Includes: Assessments from this encounter Findings L5-S1 DDD/lumbar strain - Last Documented On 12/21/2023 11:12AM ; [facility], [facility] Instructions Includes: Instructions from this encounter Instructions to patient Intervention and counseling on cessation of tobacco use Last Documented On 4 1:30PM ; [facility], [facility] Medical Equipment - Implanted Devices Includes: Current Devices No Medical Equipment Recorded Medications Includes: Medications discussed during this encounter and other current Medications Current Medications (continue as prescribed) Lidocaine 5% External Patch 12/10/2023 Provider: Diagnosis: Last Documented On 4 1:29PM By Brook Rae ; [facility], [facility] Ibuprofen 600 MG Oral Tablet 11/22/2023 Provider: Diagnosis: Last Documented On 4 1:29PM By Brook Rae ; [facility] Methocarbamol 500 MG Oral Tablet 11/22/2023 Provider : Diagnosis: Last Documented On 4 1:29PM By Brook Rae ; [facility], [facility] Cyclobenzaprine HCl 10 MG Oral Tablet 11/07/2023 Pro vider: Diagnosis: Last Documented On 4 8:50AM By Brook Rae ; [facility], [facility] Naproxen 500 MG Oral Tablet 10/16/2023 Provider: Diagnosis: Last Documented On 4 8:50AM By Brook Rae ; [facility], [facility] Acetaminophen 325 MG Oral Tablet 09/04/2023 Provider : Diagnosis: Last Documented On 4 8:50AM By Brook Rae ; [facility], [facility] Past Medications on file Meloxicam 7.5 MG Oral Tablet 02/29/2024 - 04/29/2024 P rovider: Cedrick Pineda MD Diagnosis: Take one tablet by mouth twice a day Last Documented On 4 11:51AM By Papo Garcia ; [facility], [facility] Methocarbamol 750 MG Oral Tablet 02/29/2024 - 04/29/19 Provider: Cedrick Pineda MD Diagnosis: Take 1 tablet every 8 hrs prn pain Last Documented On 4 11:51AM By Papo Garcia ; [facility], [facility] Naprosyn 500 MG Oral Tablet 11/10/2023 - 12/10/2023 Pr ovider: Chaitanya Solorzano PA-C Diagnosis: Take 1 tablet by mouth twice a day Last Documented On 4 9:34AM By Brook Rae ; [facility] Medications Administered Includes: Administered Medications from this encounter No Administered Medications Recorded Vital Signs Includes: Vital Signs from this encounter Vital Name 12/19/2023 01:29P Height (in) 63 Weight (lb) 150 Body Mass Index 26.6 BMI Percentile (percentile) 87.7 Body Surface Area 1.7 Pain Level 6 Note: lc Last Documented: On 12/19/2023 1:30PM ; [facility] Results Includes: Results discussed during this encounter [...] from 1-10: 6 - Yes, previous treatment. [facility] - - Review of medications documented [...] Documented On 4 11:12AM ; [facility] Caffeine use 11/10/2023 Last Documented On 4 1:25PM ; [facility] Exercising regularly 11/10/2023 Last Documented On 4 1:25PM ; [facility] No recent change in diet 11/10/2023 Last Documented On 4 1:25PM ; [facility] Not using alcohol 11/10/2023 Last Documented On 4 1:25PM ; [facility] Not using drugs 11/10/2023 Last Documented On 4 1:25PM ; [facility] Sex - Female 07/22/2024 Last Documented On 5 4:10PM ; [facility] Smoking Status Unknown Procedures and Surgical History Surgical History Last Updated Past Surgical History: tonsilectomy 10/19 Last Documented On 4 1:25PM ; [facility] Medical History Includes: Medical History addressed during this encounter No Medical History Recorded Family History Includes: Family History addressed during this encounter Description Last Updated No significant family history 11/10/2023 Last Documented On 4 1:25PM ; [facility] Review of Systems Includes: Review of [...] encounter Description No anxiety Last Documented On 4 1:25PM ; [facility] Physical Exam Includes: Physical Exam from this encounter Allergies Includes: Active Allergies No Known Allergies Care Sheet Tester Name (Identifier) Role/Relation Location/Telecom Last Documented By Chaitanya Solorzano PA-C ([id number]) Assigned practitioner (occupation) tel: Last Documented On 07/22/2024 4:10PM ; [facility] Encounters Encounter Provider Location (Healthcare Service Location) Date Check-In Time Check-Out Time Diagnosis Encounter Disposition Follow Up Chaitanya Solorzano PA-C [facility] 2023 1:24PM 1:40PM Payer Includes: Active Insurance Policies Plan Name (Payer ID) Coverage Type Member ID Group # Subscriber (ID) Relationship Effective Dates 1 - [employer] [facility] ([id number]) [id number] [place] Self Last Documented On 8:39AM ; [facility] Clinical Notes Includes: Clinical Notes from this encounter * Progress note Date Encounter Last Documented by 12/19/2023 Follow Up Last documented on 12/21/2023; 11:12 AM, Chaitanya Peacock; [facility] Active Problems & Conditions - Lower [...] from 1-10: 6 - Yes, previous treatment. [facility] - - Review of medications documented [...]
--- OUTSIDE RECORDS SUMMARY | 2025-03-18 11:12 | XMS_ITS ---
Author Organization [facility] , [facility] Address [address] [place] [address] Phone Care Team Providers Care Yoker Name Role Phone Chaitanya Solorzano PA-C Unavailable [phone] Problems Includes: Active, inactive, and resolved Problems All Visits Onset Date Date of Diagnosis Resolved Date Provider Condition Status Lower Back Pain 11/10/2023 11/10/2023 Chaitanya Solorzano PA-C Active Last Documented On 5 1:42AM ; [facility], [facility] Plan of Treatment Pending Tests Order Diagnosis Results Due Ordering P rovider Therapy - Physical Therapy Lumbar Low back pain, unspecified 11/10/23 Chaitanya Solorzano PA-C Last Documented On 4 3:09PM ; [facility] Radiology - MRI MRI Lumbar Spine Low back pain, unspecified 01/02/24 Chaitanya Solorzano PA-C Last Documented On 4 11:12AM ; [facility] Instructions to patient Intervention and counseling on cessation of tobacco use Last Documented On 5 10:37AM ; [facility], [facility] Intervention and counseling on cessation of tobacco use Last Documented On 4 11:15AM ; [facility], [facility] Intervention and counseling on cessation of tobacco use Last Documented On 4 1:30PM ; [facility], [facility] Assessments Includes: Assessments for all patient encounters No Assessments Recorded Instructions Includes: Instructions for all patient encounters Instructions to patient Intervention and counseling on cessation of tobacco use Last Documented On 5 10:37AM ; [facility], [facility] Intervention and counseling on cessation of tobacco use Last Documented On 4 11:15AM ; [facility], [facility] Intervention and counseling on cessation of tobacco use Last Documented On 4 1:30PM ; [facility], [facility] Medical Equipment - Implanted Devices Includes: Current and historical Devices No Medical Equipment Recorded Medications Includes: Current and historical Medications Current Medications (continue as prescribed) Lidocaine 5% External Patch 12/10/2023 Provider: Diagnosis: Last Documented On 4 1:29PM By Brook Rae ; [facility], [facility] Ibuprofen 600 MG Oral Tablet 11/22/2023 Provider: Diagnosis: Last Documented On 4 1:29PM By Brook Rae ; [facility] Methocarbamol 500 MG Oral Tablet 11/22/2023 Provider : Diagnosis: Last Documented On 4 1:29PM By Brook Rae ; [facility], [facility] Cyclobenzaprine HCl 10 MG Oral Tablet 11/07/2023 Pro vider: Diagnosis: Last Documented On 4 8:50AM By Brook Rae ; [facility], [facility] Naproxen 500 MG Oral Tablet 10/16/2023 Provider: Diagnosis: Last Documented On 4 8:50AM By Brook Rae ; [facility] Acetaminophen 325 MG Oral Tablet 09/04/2023 Provider : Diagnosis: Last Documented On 4 8:50AM By Brook Rae ; [facility], [facility] Past Medications on file Meloxicam 7.5 MG Oral Tablet 02/29/2024 - 04/29/2024 P rovider: Cedrick Pineda MD Diagnosis: Take one tablet by mouth twice a day Last Documented On 4 11:51AM By Papo Garcia ; [facility], [facility] Methocarbamol 750 MG Oral Tablet 02/29/2024 - 04/29/19 25 Provider: Cedrick Pineda MD Diagnosis: Take 1 tablet every 8 hrs prn pain Last Documented On 4 11:51AM By Papo Garcia ; [facility], [facility] Naprosyn 500 MG Oral Tablet 11/10/2023 - 12/10/2023 Pr ovider: Chaitanya Solorzano PA-C Diagnosis: Take 1 tablet by mouth twice a day Last Documented On 4 9:34AM By Brook Rae ; [facility], [facility] Medications Administered Includes: Administered Medications in patient's chart No Administered Medications Recorded Vital Signs Includes: Vital Signs from 03/18/2024 through 03/18/2025 Vital Name 04/18/2024 10:44A 04/18/2024 10: 37A Height (in) 64 64 Weight (lb) 155 150 Body Mass Index 26.6 25.7 BMI Percentile (percentile) 87.2 84 Body Surface Area 1.8 1.7 Pain Level 7 Last Documented: On 04/18/2024 10:44A M ; [facility] On 04/18/2024 10:37AM ; [facility] Results Includes: Results from 03/18/2024 through 03/18/2025 No Results Recorded For Specified Dates Social History Description Last Updated Yes, current smoker. 12/19/2023 Last Documented On 4 11:12AM ; [facility] Caffeine use 11/10/2023 Last Documented On 4 3:09PM ; [facility] Exercising regularly 11/10/2023 Last Documented On 4 3:09PM ; [facility] No recent change in diet 11/10/2023 Last Documented On 4 3:09PM ; [facility] Not using alcohol 11/10/2023 Last Documented On 4 3:09PM ; [facility] Not using drugs 11/10/2023 Last Documented On 4 3:09PM ; [facility] Sex - Female 07/22/2024 Last Documented On 5 4:10PM ; [facility] Smoking Status Unknown Procedures and Surgical History Surgical History Last Updated Past Surgical History: tonsilectomy 10/19 Last Documented On 4 3:09PM ; [facility] Medical History Includes: Medical History in patient's chart No Medical History Recorded Family History Includes: Family History in patient's chart Description Last Updated No significant family history 11/10/2023 Last Documented On 4 3:09PM ; [facility], [facility] Mental Status Description No anxiety Last Documented On 5 10:37AM ; [facility], [facility] No anxiety Last Documented On 4 11:15AM ; [facility], [facility] No anxiety Last Documented On 4 1:25PM ; [facility], [facility] No anxiety Last Documented On 4 9:41AM ; [facility], [facility] Allergies Includes: Active, inactive, and resolved Allergies No Known Allergies Care Yoker Name (Identifier) Role/Relation Location/Telecom Last Documented By Chaitanya Solorzano PA-C ([id number]) Assigned practitioner (occupation) tel: Last Documented On 07/22/2024 4:10PM ; [facility], [facility] Encounters Includes: Encounters from 03/18/2024 through 03/18/2025 Encounter Provider Location (Healthcare Service Location) Date Check-In Time Check-Out Time Diagnosis Encounter Disposition Follow Up Cedrick Pineda MD [facility] 2024 10:26AM 10:38AM Payer Includes: Active Insurance Policies Plan Name (Payer ID) Coverage Type Member ID Group # Subscriber (ID) Relationship Effective Dates 1 - [employer] [facility] ([id number]) [id number] [place] Self Last Documented On 4 8:39AM ; [facility], [facility]
--- OUTSIDE RECORDS SUMMARY | 2025-03-18 11:12 | XMS_ITS | Clinical Summary ---
Author Organization [facility] , [facility] Address [address] [place] [address] Phone Care Team Providers Care Nuisance Wildlife Trapper Name Role Phone Rashad NOLAN Chaitanya Unavailable [phone] Reason for Visit and Chief Complaint The Chief Complaint is: low back pain Problems Includes: Problems addressed during this encounter and other active Problems Current Visit Onset Date Date of Diagnosis Resolved Date Provider Condition Status Lower Back Pain 11/10/2023 11/10/2023 Chaitanya Solorzano PA-C Active Last Documented On 5 1:42AM ; [facility] Plan of Treatment Pending Tests Order Diagnosis Results Due Ordering P rovider Therapy - Physical Therapy Lumbar 04/18/24 Cedrick Pineda MD Last Documented On 5 10:37AM ; [facility] Instructions to patient Intervention and counseling on cessation of tobacco use Last Documented On 5 10:37AM ; [facility], [facility] Assessments Includes: Assessments from this encounter No Assessments Recorded Instructions Includes: Instructions from this encounter Instructions to patient Intervention and counseling on cessation of tobacco use Last Documented On 5 10:37AM ; [facility] Medical Equipment - Implanted Devices Includes: Current Devices No Medical Equipment Recorded Medications Includes: Medications discussed during this encounter and other current Medications Current Medications (continue as prescribed) Lidocaine 5% External Patch 12/10/2023 Provider: Diagnosis: Last Documented On 4 1:29PM By Brook Rae ; [facility], [facility] Ibuprofen 600 MG Oral Tablet 11/22/2023 Provider: Diagnosis: Last Documented On 4 1:29PM By Brook Rae ; [facility], [facility] Methocarbamol 500 MG Oral Tablet 11/22/2023 Provider : Diagnosis: Last Documented On 4 1:29PM By Brook Rae ; [facility] Cyclobenzaprine HCl 10 MG Oral Tablet 11/07/2023 Pro vider: Diagnosis: Last Documented On 4 8:50AM By Brook Rae ; [facility] Naproxen 500 MG Oral Tablet 10/16/2023 Provider: Diagnosis: Last Documented On 4 8:50AM By Brook Rae ; [facility] Acetaminophen 325 MG Oral Tablet 09/04/2023 Provider : Diagnosis: Last Documented On 4 8:50AM By Brook Rae ; [facility], [facility] Past Medications on file Meloxicam 7.5 MG Oral Tablet 02/29/2024 - 04/29/2024 P rovider: Cedrick Pineda MD Diagnosis: Take one tablet by mouth twice a day Last Documented On 4 11:51AM By Papo Garcia ; [facility], [facility] Methocarbamol 750 MG Oral Tablet 02/29/2024 - 04/29/19 Provider: Cedrick Pineda MD Diagnosis: Take 1 tablet every 8 hrs prn pain Last Documented On 4 11:51AM By Papo Garcia ; [facility], [facility] Naprosyn 500 MG Oral Tablet 11/10/2023 - 12/10/2023 Pr ovider: Chaitanya Solorzano PA-C Diagnosis: Take 1 tablet by mouth twice a day Last Documented On 4 9:34AM By Brook Rae ; [facility], [facility] Medications Administered Includes: Administered Medications from this encounter No Administered Medications Recorded Vital Signs Includes: Vital Signs from this encounter Vital Name 04/18/2024 10:44A 04/18/2024 10: 37A Height (in) 64 64 Weight (lb) 155 150 Body Mass Index 26.6 25.7 BMI Percentile (percentile) 87.2 84 Body Surface Area 1.8 1.7 Pain Level 7 Last Documented: On 04/18/2024 10:44A M ; [facility] On 04/18/2024 10:37AM ; [facility], [facility] Results Includes: Results discussed during this encounter [...] 12/19/2023 Last Documented On 5 10:36AM ; [facility], [facility] Caffeine use 11/10/2023 Last Documented On 5 10:36AM ; [facility], [facility] Exercising regularly 11/10/2023 Last Documented On 5 10:36AM ; [facility], [facility] No recent change in diet 11/10/2023 Last Documented On 5 10:36AM ; [facility], [facility] Not using alcohol 11/10/2023 Last Documented On 5 10:36AM ; [facility], [facility] Not using drugs 11/10/2023 Last Documented On 5 10:36AM ; [facility], [facility] Sex - Female 07/22/2024 Last Documented On 5 4:10PM ; [facility], [facility] Smoking Status Unknown Procedures and Surgical History Surgical History Last Updated Past Surgical History: tonsilectomy 10/19 Last Documented On 5 10:36AM ; [facility], [facility] Medical History Includes: Medical History addressed during this encounter No Medical History Recorded Family History Includes: Family History addressed during this encounter Description Last Updated No significant family history 11/10/2023 Last Documented On 5 10:36AM ; [facility], [facility] Review of Systems Includes: Review of Systems [...] encounter Description No anxiety Last Documented On 5 10:37AM ; [facility] Physical Exam Includes: Physical Exam from this encounter Allergies Includes: Active Allergies No Known Allergies Care Nuisance Wildlife Trapper Name (Identifier) Role/Relation Location/Telecom Last Documented By Chaitanya Solorzano PA-C ([id number]) Assigned practitioner (occupation) tel: Last Documented On 07/22/2024 4:10PM ; [facility] Encounters Encounter Provider Location (Healthcare Service Location) Date Check-In Time Check-Out Time Diagnosis Encounter Disposition Follow Up Cedrick Pineda MD [facility] 2024 10:26AM 10:38AM Payer Includes: Active Insurance Policies Plan Name (Payer ID) Coverage Type Member ID Group # Subscriber (ID) Relationship Effective Dates 1 - [employer] [facility] ([id number] [id number] [place] Self Last Documented On 4 8:39AM ; [facility]
--- OUTSIDE RECORDS SUMMARY | 2025-03-18 11:12 | XMS_ITS | Clinical Summary ---
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 Patient will follow up 6 weeks start with physical therapy and anti-inflammatories such as naproxen if that does not help then we will get other imaging - Last Documented On 11/14/2023 3:09PM ; [facility] Pending Tests Order Diagnosis Results Due Ordering P rovider Therapy - Physical Therapy Lumbar Low back pain, unspecified 11/10/23 Chaitanya Solorzano PA-C Last Documented On 4 3:09PM ; [facility] Radiology - MRI MRI Lumbar Spine Low back pain, unspecified 01/02/24 Chaitanya Solorzano PA-C Last Documented On 4 11:12AM ; [facility] Assessments Includes: Assessments from this encounter Findings L5-S1 DDD/lumbar strain - Last Documented On 11/14/2023 3:09PM ; [facility] Medical Equipment - Implanted Devices Includes: Current Devices No Medical Equipment Recorded Medications Includes: Medications discussed during this encounter and other current Medications New / Renewed during this visit Chaitanya Solorzano PA-C on 11/10/2023 Naprosyn 500 MG Oral Tablet Provider: Chaitanya Solorzano PA-C 30 day supply: 60 tablet, 0 refills Diagnosis: Take 1 tablet by mouth twice a day Pharmacy: [facility] [phone] [place], [id number] - Last Documented On 4 9:34AM By Brook Rae ; [facility] Current Medications (continue as prescribed) Lidocaine 5% External Patch 12/10/2023 Provider: Diagnosis: Last Documented On 4 1:29PM By Brook Rae ; [facility] Ibuprofen 600 MG Oral Tablet 11/22/2023 Provider: Diagnosis: Last Documented On 4 1:29PM By Brook Rae ; [facility] Methocarbamol 500 MG Oral Tablet 11/22/2023 Provider : Diagnosis: Last Documented On 4 1:29PM By Brook Rae ; [facility] Cyclobenzaprine HCl 10 MG Oral Tablet 11/07/2023 Pro vider: Diagnosis: Last Documented On 4 8:50AM By Brook Rae ; [facility] Naproxen 500 MG Oral Tablet 10/16/2023 Provider: Diagnosis: Last Documented On 4 8:50AM By Brook Rae ; [facility] Acetaminophen 325 MG Oral Tablet 09/04/2023 Provider : Diagnosis: Last Documented On 4 8:50AM By Brook Rae ; [facility] Past Medications on file Meloxicam 7.5 MG Oral Tablet 02/29/2024 - 04/29/2024 Noy hubbard: Cedrick Pineda MD Diagnosis: Take one tablet by mouth twice a day Last Documented On 4 11:51AM By Papo Garcia ; [facility] Methocarbamol 750 MG Oral Tablet 02/29/2024 - 04/29/19 Provider: Cedrick Pineda MD Diagnosis: Take 1 tablet every 8 hrs prn pain Last Documented On 4 11:51AM By Papo Garcia ; [facility] Medications Administered Includes: Administered Medications from this encounter No Administered Medications Recorded Vital Signs Includes: Vital Signs from this encounter Vital Name 11/10/2023 08:50A Height (in) 63 Weight (lb) 155 Body Mass Index 27.5 BMI Percentile (percentile) 90.3 Body Surface Area 1.7 Pain Level 6 Note: lc Last Documented: On 11/10/2023 8:50AM ; [facility] Results Includes: Results discussed during this [...] from 1-10: 6 - Yes, previous treatment. [facility] - - Review of medications documented [...] Documented On 4 3:09PM ; [facility] Exercising regularly 11/10/2023 Last Documented On 4 3:09PM ; [facility] No recent change in diet 11/10/2023 Last Documented On 4 3:09PM ; [facility] Not a current smoker. 11/10/2023 Last Documented On 4 3:09PM ; [facility] Not using alcohol 11/10/2023 Last Documented On 4 3:09PM ; [facility] Not using drugs 11/10/2023 Last Documented On 4 3:09PM ; [facility] Sex - Female 07/22/2024 Last Documented On 5 4:10PM ; [facility] Smoking Status Unknown Procedures and Surgical History Surgical History Last Updated Past Surgical History: tonsilectomy 10/19 Last Documented On 4 3:09PM ; [facility] Medical History Includes: Medical History addressed during this encounter No Medical History Recorded Family History Includes: Family History addressed during this encounter Description Last Updated No significant family history 11/10/2023 Last Documented On 4 3:09PM ; [facility] Review of Systems Includes: Review [...] Description No anxiety Last Documented On 4 9:41AM ; [facility] Physical Exam Includes: Physical Exam from this encounter Allergies Includes: Active Allergies No Known Allergies Care Shoe Lining Fitter Name (Identifier) Role/Relation Location/Telecom Last Documented By Chaitanya Solorzano PA-C ([id number]) Assigned practitioner (occupation) tel: Last Documented On 07/22/2024 4:10PM ; [facility] Encounters Encounter Provider Location (Healthcare Service Location) Date Check-In Time Check-Out Time Diagnosis Encounter Disposition Physician Specified Chaitanya Solorzano PA-C [facility] 2023 8:54AM 9:25AM Payer Includes: Active Insurance Policies Plan Name (Payer ID) Coverage Type Member ID Group # Subscriber (ID) Relationship Effective Dates 1 - [employer] [facility] ([id number]) [id number] [place] Self Last Documented On 8:39AM ; [facility] Clinical Notes Includes: Clinical Notes from this encounter * Progress note Date Encounter Last Documented by 11/10/2023 Physician Specified Last hailey escobar on 11/14/2023; 3:09 PM, Chaitanya Solorzano PA-C; [facility] Active Problems & Conditions - Lower [...] from 1-10: 6 - Yes, previous treatment. [facility] - - Review of medications documented [...]
[2025-03-18] MEDS: 0.9 % SODIUM CHLORIDE 1000ML 1,000 ML 999 ML IV ×2 (11:17→12:18)
[2025-03-18] MEDS: FAMOTIDINE 20MG/2ML VIAL 20 MG IV (11:18)
[2025-03-18] MEDS: ONDANSETRON 4MG/2ML VIAL 4 MG IV (11:18)
[2025-03-18 11:19] LABS: Hematocrit 43.7 % (37.0-47.0); Hemoglobin 15.4 g/dL (12.2-16.2); Immature Granulocytes % 0.3 %; Mean Corpuscular HGB Conc 35.2 g/dL (31.8-35.4); Mean Corpuscular Hemoglobin 32.3 pg (27.0-31.2); Mean Corpuscular Volume 91.6 fl (81-99); Nucleated Red Blood Cells % 0 %; Platelet Count 467 K/mm3 (142-424); Red Blood Count 4.77 M/mm3 (4.20-5.40); Red Cell Distribution Width-SD 38.3 fL; White Blood Count 13.6 K/mm3 (4.5-13.0)
[2025-03-18 11:19] LABS: Coronavirus 19, PCR Not Detected (NotDetected); Influenza A, PCR Not Detected (NotDetected); Influenza B, PCR Not Detected (NotDetected)
--- NOTE | 2025-03-18 11:20 | ECG_ITS ---
APPROVED REPORT Exam: Resting ECG HR:98 bpm ECG Measurements Heart Rate 98 AXES OH 137 P 32 QRSd 100 QRS 71 QT 330 T 33 QTc 386 Conclusion SINUS RHYTHM NORMAL ECG Electronically signed by : JUSTICE DAS, 03/19/2025 21:52:54
[2025-03-18 11:25] LABS: Albumin Level 5.3 g/dl (3.5-5.0); Chloride 103 mmol/L (98-107)
[2025-03-18 11:26] LABS: Potassium 4.3 mmoL/L (3.5-5.1); Sodium 138 mmol/L (136-145)
[2025-03-18 11:27] LABS: Microscopic, Urine URINE MICROSCOPIC (MICROSCOPIC)
[2025-03-18 11:28] LABS: Alanine Aminotransferase 22 U/L (12-78); Albumin/Globulin Ratio 1.8 (1.1-1.8); Alkaline Phosphatase 72 U/L (38-126); Anion Gap 19.3 mEq/L (5-15); Aspartate Amino Transferase 31 U/L (14-36); Bilirubin,Total 1.2 mg/dl (0.2-1.3); Blood Urea Nitrogen 20 mg/dl (7-17); Calcium 10.0 mg/dl (8.4-10.2); Carbon Dioxide 20 mmol/L (22.0-30.0); Creatinine Clearance Estimated 122 mL/min (50-200); Creatinine,Serum 0.90 mg/dl (0.52-1.04); Estimated Glomerular Filt Rate 81 ml/min (>60); GFR (African American) 98 ML/MIN (>60); Globulin 2.9 g/dL (1.3-3.2); Glucose 147 mg/dl (74-100); Lipase 48 U/L (23-300); Total Protein,Serum 8.2 g/dl (6.3-8.2)
[2025-03-18 11:29] LABS: Magnesium 1.9 mg/dl (1.6-2.3)
[2025-03-18 11:30] LABS: Bilirubin,Urine Negative (Negative); Color,Urine YELLOW (Yellow); Glucose,Urine (UA) Negative (Negative); Ketones,Urine Negative (Negative); Leukocyte Esterase,Urine Negative (Negative); PH,Urine 6.0 (5.0-8.5); Protein,Urine Negative (Negative); Specific Gravity, Urine >= 1.030 (1.005-1.030); Urobilinogen,Urine 0.2 EU/dl (0.2)
[2025-03-18 11:32] LABS: Urine Pregnancy, HCG Qual. Negative (Negative)
[2025-03-18 11:48] LABS: Troponin I < 0.01 ng/ml (0.00-0.034)
--- NOTE | 2025-03-18 12:04 | CT_ITS ---
FINAL REPORT TECHNIQUE: Thin section axial images are obtained through the abdomen and pelvis after intravenous contrast. Reconstruction images were obtained from the axial data. Exam was performed using dose reduction techniques. CLINICAL HISTORY: abdominal pain FINDINGS: LUNG BASES: There is a 3 mm left lower lobe noncalcified pulmonary nodule which is likely of no significance in a patient of this age. Lungs bases otherwise clear Heart size is normal. LIVER: Homogeneous. No focal lesion. GALLBLADDER/BILIARY SYSTEM: Gallbladder is present. No gallstones. No biliary dilatation. SPLEEN: Unremarkable. PANCREAS: Unremarkable. ADRENALS: Unremarkable. KIDNEYS/URETERS/BLADDER: No hydronephrosis, renal mass, or renal stone. Unremarkable urinary bladder. GI TRACT: There are fluid-filled small bowel loops in the abdomen and pelvis. Fluid is seen throughout the colon, favor enterocolitis. There is no evidence of small bowel obstruction. The appendix is normal. PELVIC ORGANS: Uterus and ovaries unremarkable for patient's age. Unremarkable for age. LYMPH NODES/RETROPERITONEUM/MESENTERY: Multiple small mesenteric lymph nodes, favor reactive. No abdominal aortic aneurysm. ABDOMINAL WALL: The abdominal wall is intact. FREE FLUID: No ascites. BONES: No acute osseous abnormality. IMPRESSION: Findings suggestive of enterocolitis. Reviewed, Interpreted and Dictated by Sujey Alaniz MD Transcribed by Thelma Rowley Authenticated and [facility]
[2025-03-18 12:06] LABS: Bacteria,Urine Trace /lpf; WBC,Urine Occasional #/hpf (0-3)
[2025-03-18] MEDS: KETOROLAC 30MG/ML VIAL 30 MG IV (12:12)
[2025-03-18] MEDS: ACETAMINOPHEN 1,000MG/100ML VIAL 1000 MG IV (12:12)
[2025-03-18 12:25] LABS: RBC Morphology Normal; Total Cells Counted 100
[2025-03-18] MEDS: SODIUM CHLORIDE 0.9% 10ML SYR (RAD ONLY) 10 ML IV (12:33)
[2025-03-18] MEDS: IOPAMIDOL-370 (76%);100ML BOTTLE 75 ML IV (12:33)
[2025-03-18 12:44] LABS: Hepatitis C Ab Qual. W/ RFX NEGATIVE (Negative)
== END 2025-03-18 14:27 | disposition home or self-care (01) ==
PROVIDERS: Nurse Practitioner; Emergency Provider Emergency Medicine; PCP Internal Medicine
DX: K52.9 Noninfective gastroenteritis and colitis, unspecified (principal); R10.30 Lower abdominal pain, unspecified; R11.2 Nausea with vomiting, unspecified; R00.0 Tachycardia, unspecified; R51.9 Headache, unspecified
CPT/HCPCS: 71045; 74177; 80053; 81001; 81025; 83690; 83735; 84484; 85007; 85025; 86803; 87389; 87636; 93005; 96361; 96374; 96375; 99285; J0131; J1308; J1885; J2405; J7030; Q9967